=== PATIENT | male | born 1970 | race Two or more races ===

== ENCOUNTER 2019-04-08 13:27 | Emergency (ER) | payer SELFPAY ==
[~2019-04-08] VITALS: Ht 172.7 cm; Wt 79.4 kg
[2019-04-08 13:45] VITALS: BP 124/64
--- NOTE | 2019-04-08 14:01 | PHYS DOC ---
Past Medical History Past Medical History: No Pertinent History Past Surgical History: No Surgical History Alcohol Use: Heavy Drug Use: None Adult General Chief Complaint Chief Complaint: Neck Pain HPI HPI Patient is a 49 year old male patient with no significant medical history who presents to the ED today complaining of 6 out of 10 throbbing intermittent bilateral neck pain, symptoms began this morning when he woke up. Symptoms worse on range of motion. Symptoms relieved on immobilization. No trauma noted. Denies any chest pain or shortness of breath. Denies any personal family cardiac history. Review of Systems Review of Systems Constitutional: Denies fever or chills [] Eyes: Denies change in visual acuity, redness, or eye pain [] HENT: Denies nasal congestion or sore throat [] Respiratory: Denies cough or shortness of breath [] Cardiovascular: No additional information not addressed in HPI [] GI: Denies abdominal pain, nausea, vomiting, bloody stools or diarrhea [] : Denies dysuria or hematuria [] Musculoskeletal: Reports neck pain Integument: Denies rash or skin lesions [] Neurologic: Denies headache, focal weakness or sensory changes [] All other systems were reviewed and found to be within normal limits, except as documented in this note. Physical Exam Physical Exam Constitutional: Well developed, well nourished, no acute distress, non-toxic appearance. [] HENT: Normocephalic, atraumatic, bilateral external ears normal, oropharynx moist, no oral exudates, nose normal. [] Eyes: PERRLA, EOMI, conjunctiva normal, no discharge. [] Neck: Normal range of motion, no tenderness, supple, no stridor. [] Cardiovascular:Heart rate regular rhythm, no murmur [] Lungs & Thorax: Bilateral breath sounds clear to auscultation [] Abdomen: Bowel sounds normal, soft, no tenderness, no masses, no pulsatile masses. [] Skin: Warm, dry, no erythema, no rash. [] Back: No tenderness, no CVA tenderness. [] Extremities: No tenderness, no cyanosis, no clubbing, ROM intact, no edema. [] Neurologic: Alert and oriented X 3, normal motor function, normal sensory function, no focal deficits noted. [] Psychologic: Affect normal, judgement normal, mood normal. [] Current Patient Data Vital Signs Vital Signs Date Time Temp Pulse Resp B/P (MAP) Pulse Ox O2 Delivery O2 Flow Rate FiO2 04/08/19 13:45 98.6 82 14 124/64 (84) 98 Room Air 98.6 EKG EKG [] Radiology/Procedures Radiology/Procedures [] Course & Med Decision Making Course & Med Decision Making Pertinent Labs and Imaging studies reviewed. (See chart for details) This is a 49-year-old male patient presenting to the ED today with neck pain consistent of torticollis. Symptoms began when he woke up this morning. Neck pain is bilateral. No radiation. Activities worsen the pain. Patient was discharged with instructions to apply heat. Dragon Disclaimer Dragon Disclaimer This electronic medical record was generated, in whole or in part, using a voice recognition dictation system. Departure Departure Impression: Primary Impression: Acute torticollis Disposition: HOME, SELF-CARE Condition: STABLE Referrals: NO PCP (PCP) follow up in one week with your doctor Patient Instructions: Torticollis, Acute Additional Instructions: Please take the medicines provided as ordered. Please apply warm compresses to your neck every 4 hrs Please follow up with your doctor in 1-2 weeks Scripts Diclofenac Potassium (DICLOFENAC POTASSIUM) 50 Mg Tablet 1 TAB PO BID, #20 TAB 0 Refills Prov: KORTNEY SÁNCHEZ APRN 04/08/19 Methylprednisolone (MEDROL) 4 Mg Tab.ds.pk 1 PKG PO UD, #1 PKG Prov: KORTNEY SÁNCHEZ APRN 04/08/19 Gabapentin (GABAPENTIN ) 300 Mg Capsule 300 MG PO TID for NEUROGENIC PAIN, #30 CAP Prov: KORTNEY SÁNCHEZ APRN 04/08/19 Cyclobenzaprine Hcl (CYCLOBENZAPRINE HCL) 10 Mg Tablet 1 TAB PO TID, #30 TAB Prov: KORTNEY SÁNCHEZ APRN 04/08/19 KORTNEY SÁNCHEZ APRN Apr 08, 2019 14:01
[2019-04-08] MEDS ORDERED: GABA300C18 PO (14:08)
[2019-04-08] MEDS ORDERED: METH4TAB2 PO (14:08)
[2019-04-08] MEDS ORDERED: CYCL10TA2 PO (14:08)
[2019-04-08] MEDS ORDERED: DICL50TA2 PO (14:08)
== END 2019-04-08 14:19 | disposition home or self-care (01) ==
LOC: ER 13:27
DX: M43.6 Torticollis (principal); F10.20 Alcohol dependence, uncomplicated; Y90.9 Presence of alcohol in blood, level not specified
CPT/HCPCS: 99283